=== PATIENT | female | born 1940 | race Caucasian/White ===

== ENCOUNTER → 2017-04-09 | Outpatient (CLI) | payer MEDICARE, OTHER ==
[~2017-04-09] MED LIST: AMLO5TAB2 PO; ASCO10004 PO; ASPI-515 PO; ATEN25TA PO; CHOL500014 PO; CINN500C2 PO; FURO20TA3 PO; FURO40TA6 PO; LISI-170 PO; LOVA20TA2 PO; OMEG1CAP56 PO; OMNIPAQUE 350 MG/ML, 100ML BOTTLE ONE; POTA20PA8 PO
== END | disposition home or self-care (01) ==
LOC: RAD 13:38
PROVIDERS: ATTEND Internal Medicine Hematology & Oncology
DX: J84.10 Pulmonary fibrosis, unspecified (principal); D73.89 Other diseases of spleen; R59.0 Localized enlarged lymph nodes; C34.90 Malignant neoplasm of unspecified part of unspecified bronchus or lung; C85.90 Non-Hodgkin lymphoma, unspecified, unspecified site
CPT/HCPCS: 71260; 74160; Q9967

== ENCOUNTER → 2017-07-21 | Outpatient (CLI) | payer MEDICARE, OTHER ==
[~2017-07-21] MED LIST changes: -CHOL500014 PO; +CHOL500045 PO; +OMEG-172 PO; -OMEG1CAP56 PO; +POTA20PA25 PO; -POTA20PA8 PO
== END | disposition home or self-care (01) ==
LOC: CFH 12:36
PROVIDERS: ATTEND Nurse Practitioner Adult Health
DX: R59.0 Localized enlarged lymph nodes (principal); I70.0 Atherosclerosis of aorta; I70.8 Atherosclerosis of other arteries; K76.89 Other specified diseases of liver; D73.89 Other diseases of spleen; M47.896 Other spondylosis, lumbar region; M12.88 Other specific arthropathies, not elsewhere classified, other specified site; I25.10 Atherosclerotic heart disease of native coronary artery without angina pectoris; M47.894 Other spondylosis, thoracic region; J84.10 Pulmonary fibrosis, unspecified; R19.00 Intra-abdominal and pelvic swelling, mass and lump, unspecified site; C49.9 Malignant neoplasm of connective and soft tissue, unspecified
CPT/HCPCS: 71260; 74177; 82565; Q9967

== ENCOUNTER → 2017-09-24 | Outpatient (CLI) | payer MEDICARE, OTHER | END | disposition home or self-care (01) | LOC: CFH 07:03 | PROVIDERS: ATTEND Internal Medicine Hematology & Oncology | DX: J98.11 Atelectasis (principal); R59.1 Generalized enlarged lymph nodes | CPT/HCPCS: 71260; 74177; 82565; Q9967 ==

== ENCOUNTER → 2017-12-31 | Outpatient (CLI) | payer MEDICARE, OTHER ==
[~2017-12-31] MED LIST changes: +GADOBUTROL 10 MMOL/10 ML PFS ONE; -OMNIPAQUE 350 MG/ML, 100ML BOTTLE ONE
== END | disposition home or self-care (01) ==
LOC: CFH 07:47
PROVIDERS: ATTEND Radiology Diagnostic Radiology
DX: C34.90 Malignant neoplasm of unspecified part of unspecified bronchus or lung (principal)
CPT/HCPCS: 70553; A9585

== ENCOUNTER → 2017-12-31 | Outpatient (CLI) | payer MEDICARE, OTHER ==
[~2017-12-31] MED LIST changes: -GADOBUTROL 10 MMOL/10 ML PFS ONE; +OMNIPAQUE 350 MG/ML, 100ML BOTTLE ONE
== END | disposition home or self-care (01) ==
LOC: RAD 15:02
PROVIDERS: ATTEND Internal Medicine Hematology & Oncology
DX: R91.8 Other nonspecific abnormal finding of lung field (principal); R59.1 Generalized enlarged lymph nodes; R19.09 Other intra-abdominal and pelvic swelling, mass and lump; C34.90 Malignant neoplasm of unspecified part of unspecified bronchus or lung
CPT/HCPCS: 71260; 74177; Q9967

== ENCOUNTER → 2018-06-17 | Outpatient (CLI) | payer MEDICARE, OTHER ==
[~2018-06-17] MED LIST changes: -AMLO5TAB2 PO; +AMLO5TAB7 PO; -OMNIPAQUE 350 MG/ML, 100ML BOTTLE ONE
== END | disposition home or self-care (01) ==
LOC: RAD 09:26
PROVIDERS: ATTEND Nurse Practitioner Adult Health
DX: I67.89 Other cerebrovascular disease (principal); C34.90 Malignant neoplasm of unspecified part of unspecified bronchus or lung
CPT/HCPCS: 70551